=== PATIENT | female | born 1945 | race African-American/Black ===

== ENCOUNTER 2021-05-01 12:55 | Inpatient (IN) | payer MEDICARE ==
[~2021-05-01] VITALS: Ht 149.9 cm; Wt 116.1 kg
--- NOTE | ~2021-05-01 | EMS ---
[place] [address] EMS Patient Care Report Name: CODY CHAVARRIA Room #: 201-P ADM IN M.R.#: [id number] Admission: 05/01/21 Attend Phys: Blake Sethi DO Discharge: Date of : 41 Report #: [id number] THIS REPORT FOR: //name// Report Transmitted: 05/02/2021 10:07 EMS Care Summary [place], [place]/[facility] Incident [id number] @ 05/01/2021 12:16 Incident [address] [place], [place] [id number] Patient CODY CHAVARRIA Female, 75 Years 1945 Patient Address [address] [place], [place] [id number] Patient History Other, Patient Allergies Penicillin allergy,Oxycodone, Patient Medications Lasix, Chief Complaint hematuria Disposition Transported No Lights/Wheeler Dispatch Reason Sick Person Transported To [facility] Narrative arrived to find patient sitting upright stating that the patient has blood in her urine. patient noticed it a few days ago and has had it ever since. patient [facility] [address] [place] [address] EMS Patient Care Report Name: CODY CHAVARRIA Room #: 201-P [facility] IN M.Risa.#: [id number] Admission: 05/01/21 Attend Phys: Blake Sethi, DO Discharge: Date of : 41 Report #: [id number] and all belongings are taken to [facility] for further evaluation and care. patient is conscious and breathing upon leaving the room. Initial Vitals @12:24P: 102,R: 18,BP: 128/80,Pain: 0/10,GCS: 15,SpO2: 98,Revised Trauma: 12, @12:40P: 100,R: 18,BP: 130/78,Pain: 0/10,GCS: 15,SpO2: 98,Revised Trauma: 12, Assessments @12:24MENTAL:No Abnormalities,SKIN:No Abnormalities,HEENT:Head/Face: No Abnormalities,Eyes: No Abnormalities,Neck/Airway: No Abnormalities,LUNG SOUNDS:General: No Abnormalities,Left Upper: No Abnormalities,Right Upper: No Abnormalities,Left Lower: No Abnormalities,Right Lower: No Abnormalities,ABDOMEN:General: No Abnormalities,Left Upper: No Abnormalities,Right Upper: No Abnormalities,Left Lower: No Abnormalities,Right Lower: No Abnormalities,PELVIS//GI:Hematuria,EXTREMITIES:Left Arm: No Abnormalities,Right Arm: No Abnormalities,Left Leg: No Abnormalities,Right Leg: No Abnormalities,PULSE:NEURO:No Abnormalities, Impression Hemorrhage Procedures @12:23 ALS Assessment Response: UnchangedSucceeded @12:25 Stretcher Response: Unchanged Timeline 12:14,Call Received 12:14,Dispatch Notified 12:16,Dispatched 12:17,En Route 12:20,On Scene 12:22,At Patient 12:23,ALS Assessment,Response: UnchangedSucceeded, 12:24,BP: 128/80 M,PULSE: 102,RR: 18 R,SPO2: 98 Ox,ETCO2: ,BG: ,PAIN: 0,GCS: 15, 12:25,Stretcher,Response: Unchanged 12:31,Depart Scene 12:40,BP: 130/78 M,PULSE: 100,RR: 18 R,SPO2: 98 Ox,ETCO2: ,BG: ,PAIN: 0,GCS: 15, 12:58,At Destination 12:59,Call Closed Disclaimer v1.1 Copyright 2021 [employer] This EMS Care Summary contains data elements from the applicable legal record [address] [address] EMS Patient Care Report Name: CODY CHAVARRIA Room #: 201-P ADM IN M.R.#: [id number] Admission: 05/01/21 Attend Phys: Blake Sethi DO Discharge: Date of : 41 Report #: [id number] (which may be displayed differently). It is designed to provide pertinent information for the following purposes: continuity of care, clinical quality, and state data reporting. The complete legal record is available to ED staff and administrators of the receiving hospital in [employer] Patient Tracker. All data is provided "as is."
[~2021-05-01 12:55] MED LIST: HYDROCHLOROTHIA25 M1 PO; K-DUR10 ME1 PO; PROTONIX40 MG PO; VICODIN 5-5001 EACH PO
[2021-05-01 12:58] VITALS: BP 129/60
[2021-05-01 14:36] LABS: HEMATOCRIT 26.1 % (37.0-47.0); HEMOGLOBIN 8.3 gm/dL (12.0-15.0); MCH 27.4 pg (26.0-34.0); MCV 85.8 fL (80.0-100.0); PLATELET COUNT 260 thou/uL (150-400); RBC 3.04 mil/uL (4.20-5.00); RDW 16.7 % (10.5-14.5); WBC 12.8 thou/uL (4.0-11.0)
[2021-05-01 14:41] LABS: CALCIUM 9.5 mg/dL (8.5-10.1); CREATININE 0.8 mg/dL (0.6-1.0)
[2021-05-01 14:47] LABS: ALBUMIN 2.4 g/dL (3.4-5.0); TOTAL BILIRUBIN 0.8 mg/dL (0.2-1.0); TOTAL PROTEIN 8.4 g/dL (6.4-8.2)
[2021-05-01 14:49] LABS: POTASSIUM 5.7 mmol/L (3.5-5.1)
[2021-05-01 14:59] LABS: ABSOLUTE NEUTROPHILS 9.1 thou/uL (1.4-8.2)
[2021-05-01 15:01] LABS: URINE BILIRUBIN NEGATIVE (Negative); URINE BLOOD TRACE (Negative); URINE CLARITY CLEAR; URINE COLOR YELLOW; URINE GLUCOSE-RANDOM* NEGATIVE (Negative); URINE KETONES NEGATIVE (Negative); URINE LEUKOCYTES-REFLEX NEGATIVE (Negative); URINE NITRITE-REFLEX NEGATIVE (Negative); URINE PROTEIN (DIPSTICK) NEGATIVE (Negative); URINE SPECIFIC GRAVITY <= 1.005 (1.005-1.035); URINE UROBILINOGEN 0.2 E.U./dl (0.2-1.0)
[2021-05-01 18:02] LABS: INR 1.25; PROTIME 13.5 Seconds (10.5-12.1)
[2021-05-01 23:45] VITALS: BP 110/46
--- NOTE | 2021-05-02 03:04 | NUR ---
PT ADMITTED TO THE FLOOR AROUND 0015, PT ADMITTED FOR ABDOMINAL WALL CELLULITIS, DRAINAGE FROM ABDOMINAL SURGICAL SITE, PICTURES TAKEN AND POSTED ON CHART, ALERT AND ORIENTED, DENIES PAIN TO THE SITE, ASSESSMENT HX, ASSESSMENT AND EDUCATION COMPLETED, SR ON TELE, C/O CONSITPATION, DULCOLAX GIVEN, PT IS NPO, STARTED ON IV ABX, NO NEEDS AT THIS TIME, WILL CONTINUE TO MONITOR
[2021-05-02 04:05] VITALS: BP 121/58
[2021-05-02 05:15] LABS: HEMATOCRIT 22.6 % (37.0-47.0); HEMOGLOBIN 7.4 gm/dL (12.0-15.0); MCH 28.1 pg (26.0-34.0); MCHC 32.6 g/dL (28.0-37.0); MCV 86.1 fL (80.0-100.0); RBC 2.63 mil/uL (4.20-5.00); RDW 16.1 % (10.5-14.5); WBC 8.9 thou/uL (4.0-11.0)
[2021-05-02 06:14] LABS: CALCIUM 8.5 mg/dL (8.5-10.1); CREATININE 0.7 mg/dL (0.6-1.0)
[2021-05-02 06:19] LABS: POTASSIUM 3.6 mmol/L (3.5-5.1)
[2021-05-02 08:03] VITALS: BP 119/61
--- NOTE | 2021-05-02 09:38 | NUR ---
PATIENT ADMITTED FOR ABDOMINAL WALL CELLULITIS; INTRA ABDOMINAL. CHART REVIEWED AND DISCUSS WITH CARET TEAM. CM MET WITH PT THIS DAY. PT APPEARED A&0. PT REPORTS SHE LIVES IN AN APARTMENT WITH HER GRANDSON DION DE LOS SANTOS. [phone] SHE REPORT SHE USES A WHEELCHAIR AND UNABLE TO WALK. PT REPORTS HER GRANDSON AND GRANDAUGHTER HELPS PT WITH TRANSFERRING TO SHOWER CHAIR AND WHEN TOILETING. SHE DENIES STAIR INSIDE OR OUTSIDE OF APARTMENT. PT REPORTS HER PCP IS SHARON LAMBERT. PT REPORTS A MONTH AGO SHE WAS AT [facility] FOR SNF. SHE REPORTS SHE DOES NOT WANT TO GO BACK THERE. CM GAVE PT SNF AND HH LIST. PT HAS PT/OT ORDERS ALTHOUGH HAS NOT SEEN PT AT THIS TIME. PT REPORTS PRIMARY CONTACT IS TIM QIU-SON. [phone]. CM WILL CONTINUE TO FOLLOW FOR DC PLANNING.
[2021-05-02 15:24] VITALS: BP 129/52
[2021-05-02 15:30] VITALS: BP 114/57
--- NOTE | 2021-05-02 16:13 | NUR ---
I have reviewed the documentation by MARSHALL Benson from 05/02/2021 to 05/02/2021 and I concur with it. Sarahi Parker, PT, DPT
[2021-05-02 19:53] VITALS: BP 135/70
[2021-05-03 03:04] VITALS: BP 120/60
--- NOTE | 2021-05-03 06:09 | NUR ---
Patient making slow progress towards outcome goals. Vital signs an rhythm stable. NPO, Abdominal dressing intact. IVFluids infusing. High fall risks, fall precautions in place.
[2021-05-03 07:00] VITALS: BP 122/98
[2021-05-03 16:24] VITALS: BP 120/61
--- NOTE | 2021-05-03 18:32 | NUR ---
PT IS AXOX4, PLEASANT; VSS, AFEBRILE, SR ON THE MONITOR. PT ABDOMINAL DRESSING C/D/I. PT NPO THIS AM. DR VILA CONSULTED. PT TO START ON REG DIET, CONTINUE TOLERATED. PT C/O SOME THROAT DISCOMFORT. CEPACOL LOZENGES RX PRN. DR HUNTER CONSULTED. POC IS TO CONTINUE ABX THERAPY, PAIN MGMT. PT WOULD LIKE TO SPEAK TO [facility] FOR POST D/C CARES: PCP AND REHAB/HH NEEDS. FALL PRECAUTIONS IN PLACE. NO CONCERNS AT THIS TIME.
[2021-05-03 20:35] VITALS: BP 128/69
[2021-05-04 02:36] VITALS: BP 145/84
[2021-05-04 05:28] LABS: ABSOLUTE NEUTROPHILS 3.1 thou/uL (1.4-8.2); BASOPHILS 0.9 % (0.0-2.0); EOSINOPHILS 9.7 % (0.0-3.0); HEMATOCRIT 22.2 % (37.0-47.0); HEMOGLOBIN 7.3 gm/dL (12.0-15.0); LYMPHOCYTES 22.8 % (24.0-44.0); MCH 28.4 pg (26.0-34.0); MCHC 32.7 g/dL (28.0-37.0); MCV 86.6 fL (80.0-100.0); MONOCYTES 11.9 % (1.0-8.0); PLATELET COUNT 215 thou/uL (150-400); POLYS 54.7 % (36.0-66.0); RBC 2.56 mil/uL (4.20-5.00); WBC 5.7 thou/uL (4.0-11.0)
[2021-05-04 05:43] LABS: CALCIUM 7.9 mg/dL (8.5-10.1); CREATININE 0.8 mg/dL (0.6-1.0); POTASSIUM 3.4 mmol/L (3.5-5.1)
[2021-05-04 07:20] VITALS: BP 135/75
--- NOTE | 2021-05-04 07:52 | NUR ---
PT RESTING QUIETLY IN ROOM, PRN PAIN MEDS GIVEN CHARTED, REPOSITIONED NEEDED, VSS, ABD DRESSING SATURATED AND CHANGED, WILL CON'T TO MONITOR PER PPOC.
[2021-05-04 11:00] VITALS: BP 133/67
[2021-05-04 15:55] VITALS: BP 130/62
--- NOTE | 2021-05-04 16:47 | NUR ---
I have reviewed the documentation by MARSHALL DAVID from 05/04/21 to 05/04/21 and I concur with it. FELI FROST, PT, DPT
--- NOTE | 2021-05-04 16:53 | NUR ---
CHART REVIEWED AND DISCUSSED WITH CARE TEAM. IT IS ANTICIPATED PT WILL BE HERE THROUGHT THE WEEKEND. 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 PT LIVES AT HOME WITH GRANDSON. THERAPY RECOMMENDING REHAB OR HH. REHAB LIASON INDICATING PT WAS TO LOW LEVEL FOR REHAB. PT DC PLAN SNF OR HH. CM FOLLOWING FOR DC PLANNING.
[2021-05-04 19:08] VITALS: BP 114/52
--- NOTE | 2021-05-04 19:39 | NUR ---
PT IS AXOX4, PLEASANT; VSS, AFEBRILE, SR ON THE MONITOR. C/O SOME ABDOMINAL PAIN R/T PAIN MEDICATION. RX MORPHINE GIVEN WITH ZOFRAN AT [facility]. PT/OT CONSULTED. PT REMAINS BEDREST, BEDPAN AND SOLIZ FOR TOILETING. POC IS TO CONTINUE TO OBSERVE ABD DRESSING/WOUND, IV ABX, PAIN MGMT. FALL PRECAUTIONS IN PLACE. NO CONCERNS AT THIS TIME.
[2021-05-05 03:37] LABS: HEMATOCRIT 22.2 % (37.0-47.0); HEMOGLOBIN 7.2 gm/dL (12.0-15.0); MCHC 32.6 g/dL (28.0-37.0); MCV 85.9 fL (80.0-100.0); RBC 2.59 mil/uL (4.20-5.00); RDW 16.4 % (10.5-14.5); WBC 7.1 thou/uL (4.0-11.0)
[2021-05-05 03:51] LABS: CALCIUM 8.5 mg/dL (8.5-10.1); CREATININE 0.8 mg/dL (0.6-1.0); POTASSIUM 3.9 mmol/L (3.5-5.1)
[2021-05-05 03:53] VITALS: BP 124/58
[2021-05-05 07:20] VITALS: BP 132/56
[2021-05-05 08:54] LABS: % SATURATION 29 % (20-39); IRON 25 ug/dL (50-170); TIBC 86 ug/dL (250-450)
[2021-05-05 11:00] VITALS: BP 106/48
[2021-05-05 15:00] VITALS: BP 99/53
[2021-05-05 19:04] VITALS: BP 143/67
[2021-05-06 03:23] VITALS: BP 113/54
[2021-05-06 04:53] LABS: HEMATOCRIT 24.4 % (37.0-47.0); HEMOGLOBIN 7.8 gm/dL (12.0-15.0); MCH 27.8 pg (26.0-34.0); MCV 86.8 fL (80.0-100.0); RBC 2.81 mil/uL (4.20-5.00); RDW 16.4 % (10.5-14.5); WBC 5.7 thou/uL (4.0-11.0)
[2021-05-06 04:56] LABS: CALCIUM 9.1 mg/dL (8.5-10.1); CREATININE 0.8 mg/dL (0.6-1.0)
--- NOTE | 2021-05-06 05:55 | NUR ---
PT RESTING QUIETLY IN BED, SOLIZ REMAINS INTACT, PRN PAIN MED GIVEN THIS AM FOR C/O R HIP PAIN, VSS, REPOSITIONED NEEDED, WILL CON'T TO MONITOR PER PPOC.
[2021-05-06 07:37] VITALS: BP 116/61
[2021-05-06 15:09] VITALS: BP 125/68
--- NOTE | 2021-05-06 16:37 | NUR ---
ASSUMED PATIENT CARE THIS AM AT 0700. PATIENT REMAINED IN BED THROUGHOUT THE SHIFT. SOLIZ REMAINED IN PLACE. MEDS GIVING PER MAY. PAIN CONTROLLED WITH REPOSITIONING AND PRN MEDS. DRESSING CHANGED ON ABDOMEN MINIMAL DRAINAGE ON OLD DRESSING. PATIENT DENIED ANY OTHER COMPLAINTS THROUGHOUT THE SHIFT.
[2021-05-06 20:00] VITALS: BP 131/50
[2021-05-07 02:40] LABS: HEMATOCRIT 22.7 % (37.0-47.0); HEMOGLOBIN 7.2 gm/dL (12.0-15.0); MCH 27.9 pg (26.0-34.0); MCHC 31.9 g/dL (28.0-37.0); MCV 87.4 fL (80.0-100.0); RBC 2.6 mil/uL (4.20-5.00); RDW 16.6 % (10.5-14.5); WBC 6.5 thou/uL (4.0-11.0)
[2021-05-07 02:54] LABS: CALCIUM 8.6 mg/dL (8.5-10.1); CREATININE 0.7 mg/dL (0.6-1.0); POTASSIUM 4.2 mmol/L (3.5-5.1)
[2021-05-07 04:00] VITALS: BP 153/76
--- NOTE | 2021-05-07 04:26 | NUR ---
ASSUMED PT CARE AT 1900, ALERT AND ORIOENTED, PLEASANT, DENIES PAIN, NAUSEA OR VOMITING, PT SLEPT ON THE CHAIR, ASSESSMENTS CHARTED, MEDS GIVEN PER EMAR, ABDOMINAL DRESSING CHANGED, NO DISTRESS NOTED, WILL CONTINUE TO MONITOR
[2021-05-07 07:25] VITALS: BP 138/64
--- NOTE | 2021-05-07 12:35 | NUR ---
I have reviewed the documentation by MARSHALL DAVID from 05/07/21 to 05/07/21 and I concur with it. FELI FROST, PT, DPT
--- NOTE | 2021-05-07 14:33 | NUR ---
CHART REVIEWED AND DISCUSSED WITH CARE TEAM. CM MEDICALLY STABLE TO DC TO SNF THIS DAY. CM MET WITH PT THIS DAY. PT NOW AGREEABLE TO [facility]. CM SENT REFERRAL TO [facility] AND SPOKE WITH ADONIS GARCIA. SHE WILL INFORM CM IF CAN ACCEPT AND SUBMIT AUTH. CM AWAITING ACCEPTANCE. CM FOLLOWING FOR DC PLANNING.
[2021-05-07 16:00] VITALS: BP 112/52
--- NOTE | 2021-05-07 18:39 | NUR ---
ASSUMED PATIENT CARE AT 0700 THIS AM. PATIENT WAS IN THE CHAIR, SHE STATED THAT SHE NORMALLY SLEEPS IN A CHAIR AT HOME AND HAD A GREAT NIGHT SLEEP. PATIENT WORKED WITH PT. PATIENTS ONLY COMPLAINT WAS BACK PAIN THIS AM, REPOSITIONED AND GAVE TYLENOL PATIENT STATED THAT TOOK CARE OF HER PAIN. DENIED ANY OTHER COMPLAINTS.
[2021-05-07 19:12] VITALS: BP 115/59
[2021-05-08] VITALS (7 sets, daily range): BP systolic 112–131; BP diastolic 40–63
--- NOTE | 2021-05-08 03:11 | NUR ---
RECEIVED CARE OF THIS PATIENT AT 1900. PATIENT ALERT AND ORIENTED X4. SLEEPING IN RECLINER. SOLIZ PATENT. C/O PAIN, MED GIVEN. SLEPT MOST OF NIGHT.
--- NOTE | 2021-05-08 16:00 | NUR ---
CHART REVIEWED AND DISCUSSED WITH CARE TEAM. CM SPOKE TO JOSE WITH [employer] WHO INDICATED PT WAS OUT OF NETWORK. CM MET WITH PT THIS DAY. PTS SON AT BEDSIDE DURING VISIT. PT INDICATED SHE DID NOT WANT TO GO SNF AND IN FACT JUST WANTS TO GO HOME WITH HH. PT DISCUSSED WITH PTS SON WHO WAS AGREEABLE TO PT DC HOME WITH HH. SON INDICATED HE WOULD TAKE PT HOME. PT AGREEABLE TO [facility] SHOULD THEY ACCEPT PT INSURANCE. PT INFORMED BY CM THAT CM WOULD CALL HER IN THE MORNING TO CONFIRM SERVICE PROVIDER AND ACCEPTANCE. PT AGREEABLE. PT WILL DC THIS EVENING.
[2021-05-08] MEDS ORDERED: ACETAMINOPHEN325 M1 PO (16:05)
[2021-05-08] MEDS ORDERED: CEPHALEXIN500 MG PO (16:05)
--- NOTE | 2021-05-08 16:27 | NUR ---
ASSUMED PT CARE THIS MORNING. PT A&OX4 AND COMMUNICATING NEEDS APPROPRIATELY TO STAFF. PT AMBULATES WITH A WALKER AND STAND BY ASSISTANCE FROM STAFF. PT VOIDED WITH A PATENT CATH. PT HAD A GOOD APPETITE AND CONSUMED THE MAJORITY OF THEIR MEALS. PT HAD SOME HIP PAIN THAT WAS WELL MANAGED WITH PO MEDICATION. PT WILL DISCHARGE HOME WITH HOME HEALTH SERVICES. DC INSTRUCTIONS WERE REVIEWED WITH THE PT. QUESTIONS INVITED AND ADDRESSED. TELE MONITORING AND IV WERE DISCONTINUED PRIOR TO DEPARTURE FROM THE FACILITY. PT WAS EDUCATED ABOUT FALL PREVENTION IN THE HOME. PT WAS SENT HOME WITH THEIR BELONGINGS TO THE CARE OF FAMILY.
--- NOTE | 2021-05-08 17:10 | NUR ---
[facility] HAS ACCEPTED PT FOR HH NEEDS. CM NOTIFIED NURSING WHO INSTRUCTED SHE WAS WALKING PT OUT AT THIS TIME. NURSING WROTE DOWN [facility] PHONE NUMBER AND INSTRUCTIONS AND REVIEWED WITH PT PRIOR TO DC.
== END 2021-05-08 17:49 | disposition home or self-care (01) | DRG 872 ==
LOC: ER 12:55 → EROBS 17:19 → 2N 17:19
PROVIDERS: Emergency Medicine; Nurse Practitioner; ADMIT Pediatrics; ATTEND Pediatrics
PROC: BW111ZZ Fluoroscopy of Abdomen and Pelvis using Low Osmolar Contrast (ICD-10-PCS; principal; 2021-05-02)
DX: A41.9 Sepsis, unspecified organism (principal); L03.311 Cellulitis of abdominal wall; K63.2 Fistula of intestine; E44.1 Mild protein-calorie malnutrition; Z68.43 Body mass index [BMI] 50.0-59.9, adult; E87.5 Hyperkalemia; Z20.822 Contact with and (suspected) exposure to COVID-19; D64.9 Anemia, unspecified; Z88.0 Allergy status to penicillin; Z88.8 Allergy status to other drugs, medicaments and biological substances; G62.9 Polyneuropathy, unspecified; B96.1 Klebsiella pneumoniae [K. pneumoniae] as the cause of diseases classified elsewhere; K59.00 Constipation, unspecified
CPT/HCPCS: 10081